=== PATIENT | female | born 1980 | race Caucasian/White ===

== ENCOUNTER 2019-11-20 15:12 | Emergency (ER) | payer OTHER, SELFPAY ==
[2019-11-20 15:22] VITALS: BP 111/60; PULSE 92; RESP 16; TEMP 37.7; O2SAT 100
--- NOTE | 2019-11-20 15:34 | ED.GENADULT ---
HPI - General Adult General Chief complaint: Skin/Abscess/Foreign Body Stated complaint: rash on arms/hands/side/legs Time Seen by Provider: 11/20/19 15:34 Source: patient and RN notes reviewed Mode of arrival: ambulatory Limitations: no limitations History of Present Illness HPI narrative: 39-year-old male presents with complaints of diffused raised, red, itching, burning rash to arms, legs, and anterior trunk for the past 7 days. Calamine lotion, Zanfel soap, and Benadryl (at bedtime, last used 11/19/19) with little relief. Symptoms has increased over the past 48-72 hours with spread of rash and itching. 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 Denies new detergent, personal hygiene products, or laundry detergent. No new foods or medications. No swelling, bleeding, or drainage. Denies fever or chills, headaches, weakness, fatigue, malagia, facial swelling, or tongue swelling. Denies any chance of being , LMP 11/20/19. The patient reports she have not been diagnosed with COVID-19. The patient reports she is not waiting for the results of a COVID-19 lab test. The patient reports she do not have fever or chills. The patient reports she do not have a new or worsening cough or shortness of breath. Denies chest pain. The patient reports she do not have any rhinorrhea, congestion, sore throat, nausea, vomiting, abdominal pain, and diarrhea. Tolerating po intake well. Denies recent traveling. Denies concerns for COVID-19 or exposures been home since [id number] order except for essential household needs, working, and return home. At this time, patient is not suspected of having COVID-19. Some parts of this dictation were generated by voice recognition software and may contain typographical and/or grammatical inaccuracies. Related Data Allergies Allergy/AdvReac Type Severity Reaction Status Date / Time Penicillins Allergy Unknown UNKNOWN Verified 11/20/19 15:28 Review of Systems Review of Systems: Narrative: CONSTITUTIONAL: Denies fever, chills, sweats. EYES: Denies visual changes, redness, discharge. ENT: Denies rhinorrhea, congestion, sore throat, otalgia. CARDIOVASCULAR: Denies chest pain, palpitations, edema. RESPIRATORY: Denies dyspnea, wheezing, cough. GASTROINTESTINAL: Denies abdominal pain, nausea, vomiting, diarrhea. GENITOURINARY: Denies dysuria, hematuria, abnormal discharge. SKIN: Complains of diffused raised, red, itching, burning rash to arms, legs, trunk. Denies drainage. MUSCULOSKELETAL: Denies acute back pain, joint pain, or myalgia. NEUROLOGIC: Denies numbness or focal weakness. PSYCHIATRIC: Denies anxiety or depression. All other systems reviewed are negative, except as documented in HPI. [facility] Past Medical History Medical History (Updated 11/21/19 @ 00:01 by Arlen Prabhakar) Pilonidal cyst Surgical History Surgical History (Updated 11/20/19 @ 15:45 by ADDY Stringer) History of excision of pilonidal cyst Family History Family History (Updated 11/20/19 @ 15:47 by ADDY Stringer) Father Diabetes mellitus Mother Hypertension Grandparent Diabetes mellitus Grandparent Heart disease Grandparent Throat cancer Grandparent Kidney failure Social History Social History (Updated 11/20/19 @ 15:49 by ADDY Stringer) Smoking packs per day: 0.5 Smoking cigarettes per day: 10.0 Years smoked: 29 Smoking pack-years: 14.50 Smoking status: Current every day smoker Tobacco type: cigarettes Alcohol intake: never Substance use: never Living arrangements: with family Occupation/Education: occupation Gender identity (if verbalized by the patient): Female Comments At time of signature, agree with nurse past medical, surgical, social, and family history. There is no relevant family history pertinent to the presenting complaint. Exam Narrative: Exam Narrative
== END 2019-11-20 15:55 | disposition home or self-care (01) ==
PROVIDERS: Emergency Provider Nurse Practitioner Family; PCP Internal Medicine
DX: L23.7 Allergic contact dermatitis due to plants, except food (principal); F17.210 Nicotine dependence, cigarettes, uncomplicated
CPT/HCPCS: 99203; G0463

== ENCOUNTER 2023-10-15 01:24 | Emergency (ER) | payer BC, SELFPAY ==
--- NOTE | ~2023-10-15 | CT_ITS ---
EXAMINATION: CT abdomen pelvis w con DATE: 10/15/2023 02:48 INDICATION: Right flank pain. TECHNIQUE: Computed tomography (CT) of the abdomen and pelvis was performed with 100 mL Omnipaque 350 intravenous contrast. Automated exposure control and iterative reconstruction technique were employe d. The dose-length product was 193.19 mGy-cm. COMPARISON: None. FINDINGS: The visualized portions of the lung bases demonstrate mild atelectasis. No pleural effusion . The heart size is normal. No pericardial effusion. There is mild pectus excavatum. There is a 6 mm cyst in the liver. The gallbladder, spleen, pancreas, adrenal glands, and left kidney are normal. The re is mild right hydronephrosis. There are 3 stones in right kidney measuring up to 4 mm. There are n o dilated loops of bowel. The appendix is normal. There are no pathologically enlarged lymph nodes. T here is no free intraperitoneal fluid. There is lumbar levoscoliosis and mild spondylosis. IMPRESSION: 1. Mild right hydronephrosis. 2. Small nonobstructing right kidney stones. Reviewed, dictated and finalized at location A.
[2023-10-15 01:46] LABS: Basophils Absolute Auto 0.1 K/mm3 (0.0-0.1); Basophils Percent Auto 0.7 % (0.2-1.2); Eosinophils Absolute Auto 0.1 K/mm3 (0-0.3); Eosinophils Percent Auto 1.2 % (0-4.4); Hematocrit 43.1 % (37.0-47.0); Hemoglobin 14.3 g/dL (12.0-15.0); Immature Granulocyte Absolute 0.04 K/mm3 (0.00-0.031); Immature Granulocyte Percent A 0.4 % (0-0.5); Lymphocytes Absolute Auto 2.84 K/mm3 (0.9-3.2); Lymphocytes Percent Auto 25.3 % (18.3-44.2); Mean Corpuscular HGB Conc 33.2 g/dl (32-36); Mean Corpuscular Volume 90.5 fl (80-100); Mean Platelet Volume 9.1 fl (7.4-10.4); Monocytes Percent Auto 9.3 % (2.6-8.5); Neutrophils Absolute Auto 7.1 K/mm3 (1.3-6.7); Neutrophils Percent Auto 63.1 % (45.5-73.1); Platelet Count Result 320 k/mm3 (150-375); Red Blood Count 4.76 M/mm3 (4.2-5.4); Red Cell Distribution Width 13.2 % (11.5-14.5); White Blood Count 11.2 K/mm3 (4.5-10.0)
[2023-10-15 01:55] LABS: Alanine Aminotransferase 14 U/L (6-35); Alkaline Phosphatase 52 U/L (38-126); Anion Gap 7 mmol/L (4-12); Aspartate Amino Transferase 24 U/L (14-36); Bilirubin,Total 0.5 mg/dL (0.2-1.3); Blood Urea Nitrogen 11 mg/dL (7-17); Calcium 10.1 mg/dL (8.4-10.2); Carbon Dioxide 28 mmol/L (22-30); Chloride 106 mmol/L (98-107); Estimated CRCL calculation 88 ml/min; Estimated Glomerular Filt Rate > 60; Glucose 104 mg/dL (65-110); Lipase 1358 U/L (23-300); Potassium 3.9 mmol/L (3.4-5.0); Sodium 141 mmol/L (137-145)
[2023-10-15] MEDS: SODIUM CHLORIDE 0.9% IV 1,000 ML 999 ML IV CONT (02:13)
[2023-10-15] MEDS: MORPHINE SULFATE (*CRX) 4 MG/ML INJ IV PUSH (02:14)
[2023-10-15] MEDS: ONDANSETRON INJ 4 MG/2 ML VIAL IV PUSH (02:14)
--- NOTE | 2023-10-15 02:19 | ED.GENADULT ---
HPI - General Adult General Chief complaint: Abdominal Pain Stated complaint: kidney pain/lower back pain/nausea x 4 weeks Time Seen by Provider: 10/15/23 01:50 History of Present Illness HPI narrative: Patient is a 42-year-old male who presents emergency department with chief complaint of right-sided flank/abdominal pain. Patient reports for the last several weeks she has been having pain worse in the right flank area that comes around patient reports she has had few episodes of vomiting but no episodes diarrhea. Patient reports some albumin improved by anything reports they are worsened with movement. Related Data Allergies Allergy/AdvReac Type Severity Reaction Status Date / Time Penicillins Allergy Unknown UNKNOWN Verified 10/15/23 01:33 Review of Systems Review of Systems: A 10 system review of systems was completed on the patient and is negative except for what is stated in the HPI. Nursing and ancillary documentation was reviewed. [facility] Past Medical History Medical History Pilonidal cyst Surgical History Surgical History History of excision of pilonidal cyst Family History Family History Father Diabetes mellitus Mother Hypertension Grandparent Diabetes mellitus Grandparent Heart disease Grandparent Throat cancer Grandparent Kidney failure Social History Social History Smoking packs per day: 0.5 Smoking cigarettes per day: 10.0 Years smoked: 29 Smoking pack-years: 14.50 Smoking status: Current every day smoker Tobacco type: cigarettes Alcohol intake: never Substance use: never Living arrangements: with family Occupation/Education: occupation Gender identity (if verbalized by the patient): Female Exam Narrative: GENERAL: Well-appearing, well-nourished, and in no acute distress. HEAD: Normocephalic, atraumatic. EYES: PERRLA and EOMI. ENT: Nares clear, no rhinorrhea or epistaxis. Mucous membranes moist. NECK: Supple. CHEST: Clear to auscultation. No respiratory distress. HEART: Regular rate and rhythm. No murmur heard. Normal peripheral pulses. ABDOMEN: Soft, tenderness to palpation in the epigastric right upper quadrant, right flank tenderness, nondistended, normal active bowel sounds. EXTREMITIES: Normal range of motion. No edema. SKIN: Warm, dry, no rash. NEURO: No focal deficits. Alert and oriented x3. PSYCH: Normal mood and affect. Medical Decision Making MDM Narrative Medical decision making narrative: Differential diagnosis includes kidney stone, constipation, pancreatitis, diverticulitis, colitis, appendicitis Laboratory studies were obtained on the patient which showed a white count of 11.2 electrolytes showed normal renal function normal liver enzymes lipase was elevated at 1358 urinalysis showed 11-20 rbc's without evidence of infection CT scan the abdomen pelvis showed some mild right hydronephrosis of right kidney but no evidence of obstructing stone the patient had a large amount of stool throughout the colon. Lab Data 10/15/23 01:41 10/15/23 01:41 Labs: Lab Results 10/15/23 10/15/23 Range/Units 01:41 02:15 WBC 11.2 H (4.5-10.0) K/mm3 RBC 4.76 (4.2-5.4) M/mm3 Hgb 14.3 (12.0-15.0) g/dL Hct 43.1 (37.0-47.0) % MCV 90.5 (80-100) fl MCH 30.0 (26-34) pg MCHC 33.2 (32-36) g/dl RDW 13.2 (11.5-14.5) % Plt Count 320 (150-375) k/mm3 MPV 9.1 (7.4-10.4) fl Immature Gran % (Auto) 0.4 (0-0.5) % Neut % (Auto) 63.1 (45.5-73.1) % Lymph % (Auto) 25.3 (18.3-44.2) % Izard % (Auto) 9.3 H (2.6-8.5) % Eos % (Auto) 1.2 (0-4.4) % Baso % (Auto) 0.7 (0.2-1.2) % Lymph # (Auto)
[2023-10-15 02:29] LABS: Appearance Urine Clear (Clear); Bacteria Urine None Seen /hpf; Bilirubin Urine Negative (Negative); Blood Urine 1+ (Negative); Color Urine Yellow (Yellow); Glucose Urine UA Negative (Negative); Ketones Urine Negative (Negative); Leukocyte Esterase Ur Negative LEU/UL (Negative); Nitrate Urine Negative (Negative); Non Pathogenic Casts 0-2; Protein Urine Negative (Negative); Specific Grav Ur 1.015 (1.001-1.035); Squamous Epithelial Cell Urine None Seen /hpf (Few); Urobilinogen Urine 0.2 mg/dL (<2.0); WBC Urine 0-5 /hpf (0-3)
[2023-10-15 02:34] LABS: Add Urine Microscopic? YES
[2023-10-15] MEDS: MAGNESIUM CITRATE 300 ML BTL PO (06:22)
[2023-10-15 06:23] VITALS: BP 124/69; PULSE 79; RESP 16; O2SAT 100
== END 2023-10-15 06:25 | disposition home or self-care (01) ==
PROVIDERS: Emergency Provider Emergency Medicine
DX: N13.30 Unspecified hydronephrosis (principal); K59.00 Constipation, unspecified; R74.8 Abnormal levels of other serum enzymes; F17.210 Nicotine dependence, cigarettes, uncomplicated
CPT/HCPCS: 36415; 74177; 80053; 81001; 81025; 83690; 85025; 96361; 96374; 96375; 99284; A9270; J2270; J2405; J7030; Q9967

== ENCOUNTER 2023-10-26 14:52 | Outpatient (CLI) | payer BC, SELFPAY ==
--- NOTE | ~2023-10-26 | MM_ITS ---
EXAMINATION: MM screening maury BI w chalino HISTORY: Screening mammogram TECHNIQUE: Craniocaudal and mediolateral oblique 3-D tomosynthesis images were obtained and synthetic 2-D images were generated. CAD analysis was submitted and interpreted. COMPARISON: No mammogram examinations available at this institution. BREAST PARENCHYMAL COMPOSITION: The breasts are extremely dense, which lowers the sensitivity of mamm ography. FINDINGS: There is no evidence of suspicious mass, calcification, or architectural distortion to sugg est malignancy in either breast. There has been no suspicious interval change. IMPRESSION: 1. No mammographic evidence of malignancy. 2. Recommend routine screening mammography in one year. BI-RADS Category 1: Negative Reviewed, dictated and finalized at location B.
--- NOTE | ~2023-10-26 | XR_ITS ---
XR chest 2V DATE: 10/26/2023 15:37 INDICATION: Tobacco use TECHNIQUE: PA and lateral views COMPARISON: None FINDINGS: Borderline heart size. No hilar or mediastinal enlargement. Mild bilateral hyperinflation. No pulmonary infiltrate or consolidation, pleural effusion or pulmonary vascular congestion or pneumo thorax is detected. Included skeletal structures are unremarkable other than mild degenerative change of the thoracic spine. IMPRESSION: No active disease Reviewed, dictated and finalized at location B. IMPRESSION: No active disease
== END 2023-10-26 14:53 | disposition home or self-care (01) ==
LOC: ANHIMG 14:55
PROVIDERS: PCP Emergency Medicine; Visit Provider Emergency Medicine
DX: Z12.31 Encounter for screening mammogram for malignant neoplasm of breast (principal); Z72.0 Tobacco use
CPT/HCPCS: 71046; 77063; 77067

== ENCOUNTER 2023-11-30 09:46 | Outpatient (CLI) | payer BC, SELFPAY ==
--- NOTE | ~2023-11-30 | US_ITS ---
US retroperitoneal comp 11/30/2023 10:30 Procedure: Realtime transabdominal ultrasound of the kidneys and bladder. Indication: Follow-up mild right hydronephrosis. Comparison: CT dated 10/15/2023 Findings: Renal echotexture is normal bilaterally without contour deforming mass or renal calculus. T here is mild right hydronephrosis. The right kidney measures 11.9 cm and left kidney measures 11.5 cm . Bladder within normal limits. Impression: 1: Mild right hydronephrosis. Reviewed, dictated and finalized at location B. Impression: 1: Mild right hydronephrosis.
--- NOTE | ~2023-11-30 | XR_ITS ---
XR abdomen/kub 1V Ordering provider: Erlin Leblanc MD History: . HYDRONEPHROSIS, RIGHT . Comparison: None. FINDINGS: BOWEL: Nonobstructive bowel gas pattern. ORGANOMEGALY: None. SIGNIFICANT PATHOLOGIC CALCIFICATIONS: Tiny calcifications seen in the right renal area. OTHER: No free air is seen under the diaphragm. Bilateral sacroiliitis. Mild bilateral hip osteoarthritic changes. IMPRESSION: Highly suggestive right kidney stone. No evidence of obstruction or perforation is seen in the bowel. Reviewed, dictated and finalized at location A.
== END 2023-11-30 09:47 | disposition home or self-care (01) ==
PROVIDERS: PCP Emergency Medicine; Visit Provider Urology
DX: N13.30 Unspecified hydronephrosis (principal)
CPT/HCPCS: 74018; 76770

== ENCOUNTER 2024-06-14 10:12 | Outpatient (CLI) | payer BC, SELFPAY ==
--- NOTE | ~2024-06-14 | CT_ITS ---
CT of the Abdomen and Pelvis: Indication: Flank pain Technique: 2.5 mm axial scans were obtained through the abdomen and pelvis prior to and following in travenous administration of 130 cc of Omnipaque 350. Dose reduction technique was used on this scan b y utilizing automated exposure control and iterative reconstruction technique. The dose-length produc t (DLP) was 526.35 mGy-cm. COMPARISON: 10/15/2023 Findings: Scans through the lung bases are unremarkable. The liver, spleen, pancreas, gallbladder, adrenals and kidneys are within normal limits. No evidence of aortic aneurysm. No lymphadenopathy. No bowel obstruction or bowel wall thickening. There is no evidence to suggest acute appendicitis. Images through the pelvis were performed. Urinary bladder unremarkable. No pelvic mass seen. No ascit es. Impression: No significant abnormalities seen. Reviewed, dictated and finalized at [facility]. 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
== END 2024-06-14 10:13 | disposition home or self-care (01) ==
PROVIDERS: PCP Emergency Medicine; Visit Provider Urology
DX: R10.9 Unspecified abdominal pain (principal)
CPT/HCPCS: 74178; Q9967